=== PATIENT | male | born 1995 | race African-American/Black ===

== ENCOUNTER 2019-03-21 20:55 | Emergency (ER) | payer SELFPAY ==
[~2019-03-21] VITALS: Ht 188 cm; Wt 86.4 kg
[2019-03-21 21:13] VITALS: BP 144/83; TEMP 99.2
[2019-03-21] MEDS ORDERED: AMOXICILLIN 8751 TAB PO (22:00)
[2019-03-21 22:28] VITALS: PULSE 70
== END 2019-03-21 22:28 | disposition home or self-care (01) ==
LOC: COL.ER 20:55
DX: K02.9 Dental caries, unspecified (principal); F17.210 Nicotine dependence, cigarettes, uncomplicated

== ENCOUNTER 2022-05-10 08:43 | Emergency (ER) | payer SELFPAY ==
[~2022-05-10] VITALS: Ht 185.4 cm; Wt 86.4 kg
[~2022-05-10 08:43] MED LIST: AMOXICILLIN 8751 TAB PO
[2022-05-10 08:49] VITALS: BP 137/75; TEMP 97.8
[2022-05-10] MEDS ORDERED: NAPROSYN500 MG PO (09:46)
[2022-05-10 10:00] VITALS: PULSE 75
== END 2022-05-10 10:00 | disposition home or self-care (01) ==
LOC: COL.ER 08:43
DX: S89.91XA Unspecified injury of right lower leg, initial encounter (principal); Z28.311 Partially vaccinated for COVID-19; W18.40XA Slipping, tripping and stumbling without falling, unspecified, initial encounter